=== PATIENT | female | born 1995 | race American Indian/Alaskan Native ===

== ENCOUNTER 2020-01-03 00:56 | Inpatient (IN) | payer SELFPAY ==
[2020-01-03] MEDS ORDERED: LACTATED RINGERS 500 ML IV ONE ×2 (01:45→02:28)
[2020-01-03] MEDS ORDERED: MAGNESIUM SULFATE 4 GM/100 ML BAG IV ONE (02:31)
[2020-01-03] MEDS ORDERED: BUTORPHANOL 2 MG/1 ML INJ IV PRN (02:33)
--- NOTE | 2020-01-03 02:38 | History and Physical Report ---
History of Present Illness Date of examination: 01/03/20 Chief complaint: contractions History of present illness: 24yo at ~30 weeks presents with PTCtx no LOF, no VB, [place] cervix FT/50%/-2, anterior-on admission FHT 140bpm, moderate variability, +ve accels with variable decelerations to 90bpm lasting ~1 minute, early component with return to baseline Past History - Obstetrical History : 2 Medications and Allergies Allergies Allergy/AdvReac Type Severity Reaction Status Date / Time No Known Allergies Allergy Verified 01/03/20 02:01 Active Meds: Active Medications Lactated Ringer's (Lactated Ringers) 500 mls @ 999 mls/hr IV BOLUS ONE Stop: 01/03/20 02:58 Magnesium Sulfate (Magnesium Sulfate 40gm/1000ml) 40 gm in 1,000 mls @ 50 mls/hr IV DIRECT LUIS Cefazolin Sodium 2 gm/ Sodium (Chloride) 100 mls @ 200 mls/hr IV Q8HR LUIS; Protocol Magnesium Sulfate (Magnesium Sulfate 4gm/100ml) 4 gm in 100 mls @ 300 mls/hr IV ONCE ONE Stop: 01/03/20 02:50 - Vital Signs Vital signs: Vital Signs Temp Pulse Resp BP Pulse Ox 98.1 F 85 18 128/63 99 01/03/20 01:13 01/03/20 01:13 01/03/20 01:13 01/03/20 01:13 01/03/20 01:13 Temp Pulse Resp BP Pulse Ox 98.1 F 103 H 18 123/71 100 01/03/20 01:13 01/03/20 02:29 01/03/20 01:13 01/03/20 01:53 01/03/20 02:29 Results All other labs normal. Assessment and Plan contractions admission mag, steroids,fluid, abx US for NICOLAS, EFW, position, placental evaluation UDS, US, prental labs Pain meds prn CFM Maternal/ well being reassuring overall Robbin Jc MD
[2020-01-03] MEDS ORDERED: MAGNESIUM SULFATE 40GM/1000ML 40 GM/1,000 ML BAG IV SCH (03:00)
[2020-01-03 03:27] LABS: Amphetamine Screen,Urine PRESUMPTIVE NEGATIVE; Benzodiazepines Screen,Urine PRESUMPTIVE NEGATIVE; Cannabinoid Screen,Urine PRESUMPTIVE NEGATIVE; Cocaine Screen,Urine PRESUMPTIVE NEGATIVE; Methadone Screen,Urine PRESUMPTIVE NEGATIVE; Opiate Screen,Urine PRESUMPTIVE NEGATIVE
[2020-01-03 03:33] LABS: Bacteria,Urine 1+ /HPF (Negative); Bilirubin,Urine NEG (Negative); Blood,Urine NEG (Negative); Color,Urine Yellow (Yellow); Mucus,Urine 2+ /HPF
[2020-01-03] MEDS ORDERED: LACTATED RINGERS 1,000 ML IV SCH (04:00)
[2020-01-03] MEDS ORDERED: BETAMET ACET/BETAMET NA PH 6 MG/ML INJ 5 ML MDV IM SCH (05:00)
--- NOTE | 2020-01-03 05:41 | Ultrasound Report ---
CLINICAL DATA: See reason for exam. TECHNICAL DATA: Document breath, motion, gestational age, tone, and fluid. FINDINGS: respiration, tone, and motion are well visualized and normal. Amniotic fluid volume is normal. Biophysical profile score is 8/8. The lower uterine segment is evaluated and there is no evidence of placenta previa. heart rate is Heart Rate 139. IMPRESSION: The biophysical profile score is 8/8. Signer Name: Gio Lundberg MD Signed: 01/03/2020 5:37 AM Workstation Name: [id number]
--- NOTE | 2020-01-03 05:43 | Ultrasound Report ---
ULTRASOUND OBSTETRIC INDICATION / CLINICAL INFORMATION: labor. Clinical Gestational Age (GA): TECHNIQUE: Transabdominal. COMPARISON: None available. FINDINGS: There is a single intrauterine . Biparietal Diameter = 7.8 cm = 31 weeks, 2 day(s). Head Circumference = 27.7 cm = 30 weeks, 2 day(s). Abdominal Circumference = 25.5 cm = 29 weeks, 5 day(s). Femur Length = 5.9 cm = 30 weeks, 6 day(s). Average Ultrasound Age (AUA) = 30 weeks, 4 day(s). Heart Rate: 139 beats per minute. Estimated Weight in grams (if calculated): 1536 Estimated Weight Growth Percentile (if calculated): Position: cephalic. Cervix: closed. Length in cm (if measured): Placenta: anterior and free of the os. Amniotic Fluid Volume: normal Amniotic Fluid Index (NICOLAS) in cm (if calculated): 13.9. Maternal Adnexa: No significant abnormality. IMPRESSION: 1. Single, living intrauterine with estimated sonographic age of 30 weeks, 4 day(s). 2. No significant sonographic abnormality. Signer Name: Gio Lundberg MD Signed: 01/03/2020 5:39 AM Workstation Name: [id number]
[2020-01-03 06:15] LABS: Basophils % (Auto) 0.3 % (0.0-1.8); Eosinophils # (Auto) 0.1 K/mm3 (0.0-0.4); Eosinophils % (Auto) 0.8 % (0.0-4.3); Hemoglobin 8.8 gm/dl (10.1-14.3); Lymphocytes # (Auto) 1.4 K/mm3 (1.2-5.4); Lymphocytes % (Auto) 16.8 % (13.4-35.0); Mean Corpuscular HGB Conc 34 % (30-34); Mean Corpuscular Volume 91 fl (79-97); Monocytes # (Auto) 0.7 K/mm3 (0.0-0.8); Monocytes % (Auto) 8.7 % (0.0-7.3); Platelet Count 275 K/mm3 (140-440); Red Blood Count 2.85 M/mm3 (3.65-5.03); Red Cell Distribution Width 13.1 % (13.2-15.2)
[2020-01-03 06:54] LABS: Hepatitis C Virus Antibody Non-Reactive (NonReactive)
--- NOTE | 2020-01-03 10:21 | Progress Note ---
Assessment and Plan A: at 31 weeks, 1 day gestation with contractions. No contractions at present. P: Continue current management as ordered by Dr. Jc (MD managing patient's care). To complete course of steroids. Continue magnesium sulfate and antibiotics. Continuous EFM. Updated MD re: patient status. Subjective - Subjective Date of service: 01/03/20 Principal diagnosis: at 31 weeks, 1 day gestation; cont ractions Interval history: Patient receiving course of steroids for FLM; also receiving magnesium sulfate and antibiotics. No contractions at present time; patient denies abdominal or pelvic pain. Patient denies leaking of fluid or vaginal bleeding. No urinary symptoms. Patient reports active movement. Patient denies falls or abdominal trauma. Patient reports: movement normal, no new complaints, no loss of fluid, no vaginal bleeding Objective - Vital Signs Vital Signs: Vital Signs - 12hr 01/03/20 01/03/20 01/03/20 01:13 01:18 01:23 Temperature 98.1 F Pulse Rate 79 83 84 Respiratory 18 Rate Blood Pressure 128/63 Blood Pressure 128/63 [Left] O2 Sat by Pulse 98 99 98 Oximetry 01/03/20 01/03/20 01/03/20 01:28 01:33 01:34 Temperature Pulse Rate 84 87 88 Respiratory Rate Blood Pressure 125/67 Blood Pressure [Left] O2 Sat by Pulse 99 98 Oximetry 01/03/20 01/03/20 01/03/20 01:38 01:43 01:48 Temperature Pulse Rate 83 84 85 Respiratory Rate Blood Pressure Blood Pressure [Left] O2 Sat by Pulse 96 95 97 Oximetry 01/03/20 01/03/20 01/03/20 01:53 01:58 02:03 Temperature Pulse Rate 86 84 84 Respiratory Rate Blood Pressure 123/71 Blood Pressure [Left] O2 Sat by Pulse 98 96 97 Oximetry 01/03/20 01/03/20 01/03/20 02:09 02:14 02:19 Temperature Pulse Rate 84 83 85 Respiratory Rate Blood Pressure Blood Pressure [Left] O2 Sat by Pulse 98 98 96 Oximetry 01/03/20 01/03/20 01/03/20 02:24 02:26 02:29 Temperature Pulse Rate 85 100 H 103 H Respiratory Rate Blood Pressure Blood Pressure [Left] O2 Sat by Pulse 95 94 100 Oximetry 01/03/20 01/03/20 01/03/20 03:05 03:07 03:10 Temperature Pulse Rate 80 85 Respiratory 18 Rate Blood Pressure 125/70 Blood Pressure [Left] O2 Sat by Pulse 100 100 Oximetry 01/03/20 01/03/20 01/03/20 03:14 03:15 03:19 Temperature Pulse Rate 89 89 93 H Respiratory Rate Blood Pressure 125/72 125/59 Blood Pressure [Left] O2 Sat by Pulse 99 Oximetry 01/03/20 01/03/20 01/03/20 03:20 03:24 03:25 Temperature Pulse Rate 91 H 90 89 Respiratory Rate Blood Pressure 130/68 Blood Pressure [Left] O2 Sat by Pulse 100 99 Oximetry 01/03/20 01/03/20 01/03/20 03:26 03:29 03:30 Temperature 97.7 F Pulse Rate 89 94 H 95 H Respiratory 18 Rate Blood Pressure 140/70 Blood Pressure 130/68 [Left] O2 Sat by Pulse 100 99 Oximetry 01/03/20 01/03/20 01/03/20 03:34 03:35 03:39 Temperature Pulse Rate 95 H 90 84 Respiratory Rate Blood Pressure 133/64 121/58 Blood Pressure [Left] O2 Sat by Pulse 98 Oximetry 01/03/20 01/03/20 01/03/20 03:40 03:44 03:45 Temperature Pulse Rate 88 88 98 H Respiratory Rate Blood Pressure 125/63 Blood Pressure [Left] O2 Sat by Pulse 97 94 Oximetry 01/03/20 01/03/20 01/03/20 03:50 03:55 04:00 Temperature Pulse Rate 99 H 88 92 H Respiratory Rate Blood Pressure Blood Pressure [Left] O2 Sat by Pulse 96 98 97 Oximetry 01/03/20 01/03/20 01/03/20 04:05 04:10 04:15 Temperature Pulse Rate 89 87 88 Respiratory 18 Rate Blood Pressure Blood Pressure [Left] O2 Sat by Pulse 100 95 97 Oximetry 01/03/20 01/03/20 01/03/20 04:19 04:20 04:21 Temperature Pulse Rate 87 91 H 92 H Respiratory Rate Blood Pressure 115/56 Blood Pressure [Left] O2 Sat by Pulse 97 93 Oximetry 01/03/20 01/03/20 01/03/20 04:25 04:30 04:35 Temperature Pulse Rate 87 88 97 H Respiratory Rate Blood Pressure Blood Pressure [Left] O2 Sat by Pulse 99 98 97 Oximetry 01/02/20 20/20 01/03/20 04:40 04:45 04:49 Temperature Pulse Rate 81 84 90 Respiratory Rate Blood Pressure 117/67 Blood Pressure [Left] O2 Sat by Pulse 97 97 Oximetry 01/03/2001/02/20 01/03/20 04:50 04:55 05:00 Temperature Pulse Rate 85 91 H 83 Respiratory Rate Blood Pressure Blood Pressure [Left] O2 Sat by Pulse 98 99 97 Oximetry 01/03/20 01/03/20 01/03/20 05:05 05:10 05:15 Temperature Pulse Rate 88 95 H 89 Respiratory Rate Blood Pressure Blood Pressure [Left] O2 Sat by Pulse 98 99 97 Oximetry 01/03/20 01/03/20 01/03/20 05:20 05:25 05:30 Temperature Pulse Rate 94 H 98 H 88 Respiratory 18 Rate Blood Pressure Blood Pressure [Left] O2 Sat by Pulse 98 97 100 Oximetry 01/03/20 01/03/20 01/03/20 05:35 05:40 05:45 Temperature Pulse Rate 95 H 87 95 H Respiratory Rate Blood Pressure Blood Pressure [Left] O2 Sat by Pulse 98 97 98 Oximetry 01/03/20 01/03/20 01/03/20 05:50 05:55 06:00 Temperature Pulse Rate 86 89 88 Respiratory Rate Blood Pressure Blood Pressure [Left] O2 Sat by Pulse 98 98 98 Oximetry 01/03/2001/02/20 01/03/20 06:08 06:46 06:51 Temperature Pulse Rate 88 97 H 94 H Respiratory Rate Blood Pressure 110/55 Blood Pressure [Left] O2 Sat by Pulse 98 100 Oximetry 01/03/20 01/03/20 01/03/20 06:56 07:01 07:06 Temperature Pulse Rate 100 H 94 H 91 H Respiratory Rate Blood Pressure Blood Pressure [Left] O2 Sat by Pulse 100 100 100 Oximetry 01/03/2020/20 01/03/20 07:08 07:11 07:16 Temperature Pulse Rate 91 H 91 H 91 H Respiratory Rate Blood Pressure 104/52 Blood Pressure [Left] O2 Sat by Pulse 100 99 Oximetry 01/03/2020/20 01/03/20 07:18 07:21 07:26 Temperature Pulse Rate 92 H 93 H Respiratory 18 Rate Blood Pressure Blood Pressure [Left] O2 Sat by Pulse 99 99 Oximetry 06/20/20 06/20/20 06/20/20 07:31 07:36 07:41 Temperature Pulse Rate 92 H 94 H 91 H Respiratory Rate Blood Pressure Blood Pressure [Left] O2 Sat by Pulse 99 99 99 Oximetry /20/20 06/20/20 06/20/20 07:46 07:51 07:56 Temperature Pulse Rate 90 91 H 92 H Respiratory Rate Blood Pressure Blood Pressure [Left] O2 Sat by Pulse 99 98 98 Oximetry /20/20 06/20/20 06/20/20 08:00 08:01 08:06 Temperature 98.1 F Pulse Rate 93 H 93 H Respiratory 20 Rate Blood Pressure Blood Pressure [Left] O2 Sat by Pulse 98 97 Oximetry 20/20 06/20/20 /20/20 08:08 08:11 08:16 Temperature Pulse Rate 92 H 91 H 92 H Respiratory Rate Blood Pressure 93/54 Blood Pressure [Left] O2 Sat by Pulse 97 97 Oximetry 20/20 /20/20 /20/20 08:21 08:26 08:31 Temperature Pulse Rate 95 H 90 94 H Respiratory Rate Blood Pressure Blood Pressure [Left] O2 Sat by Pulse 98 96 97 Oximetry 20/20 /20/20 /20/20 08:36 08:41 08:46 Temperature Pulse Rate 94 H 94 H 93 H Respiratory Rate Blood Pressure Blood Pressure [Left] O2 Sat by Pulse 98 97 96 Oximetry /20/20 06/20/20 /20/20 08:51 08:56 09:01 Temperature Pulse Rate 93 H 92 H 94 H Respiratory Rate Blood Pressure Blood Pressure [Left] O2 Sat by Pulse 97 97 97 Oximetry /20/20 06/20/20 /20/20 09:06 09:08 09:11 Temperature Pulse Rate 90 91 H 89 Respiratory 18 Rate Blood Pressure 107/57 Blood Pressure [Left] O2 Sat by Pulse 97 95 Oximetry /20/20 06/20/20 /20/20 09:16 09:21 09:26 Temperature Pulse Rate 93 H 92 H 94 H Respiratory Rate Blood Pressure Blood Pressure [Left] O2 Sat by Pulse 98 97 97 Oximetry /20/20 06/20/20 /20/20 09:31 09:36 09:41 Temperature Pulse Rate 94 H 95 H 92 H Respiratory Rate Blood Pressure Blood Pressure [Left] O2 Sat by Pulse 97 97 97 Oximetry 01/03/20 01/03/20 01/03/20 09:46 09:51 09:56 Temperature Pulse Rate 95 H 94 H 87 Respiratory Rate Blood Pressure Blood Pressure [Left] O2 Sat by Pulse 97 97 96 Oximetry 01/03/20 01/03/20 01/03/20 10:01 10:06 10:08 Temperature Pulse Rate 86 86 86 Respiratory Rate Blood Pressure 119/67 Blood Pressure [Left] O2 Sat by Pulse 99 98 Oximetry 01/03/20 10:11 Temperature Pulse Rate 88 Respiratory Rate Blood Pressure Blood Pressure [Left] O2 Sat by Pulse 97 Oximetry - Exam Cardiovascular: Regular rate Lungs: Clear to auscultation Abdomen: Present: normal appearance, soft. Absent: distention, tenderness, guarding, rigidity Uterus: Present: normal, fundal height above umbilicus. Absent: tenderness FHR: category 1 Uterine Contraction Monitor Mode: External Uterine Contraction Pattern: Absent Extremities: normal - Labs Labs: Abnormal Labs 01/03/20 05:00 RBC 2.85 L Hgb 8.8 L Hct 26.0 L RDW 13.1 L [place] % (Auto) 8.7 H Seg Neutrophils % 73.4 H Laboratory Results - last 24 hr 01/03/20 01/03/20 01/03/20 05:00 05:00 05:00 WBC 8.2 RBC 2.85 L Hgb 8.8 L Hct 26.0 L MCV 91 MCH 31 MCHC 34 RDW 13.1 L Plt Count 275 Lymph % (Auto) 16.8 [place] % (Auto) 8.7 H Eos % (Auto) 0.8 Baso % (Auto) 0.3 Lymph # 1.4 [place] # 0.7 Eos # 0.1 Baso # 0.0 Seg Neutrophils % 73.4 H Seg Neutrophils # 6.0 Urine Color Urine Turbidity Urine pH Ur Specific [place] Urine Protein Urine Glucose (UA) Urine Ketones Urine Blood Urine Nitrite Urine Bilirubin Urine Urobilinogen Ur Leukocyte Esterase Urine WBC (Auto) Urine RBC (Auto) U Epithel Cells (Auto) Urine Bacteria (Auto) Urine Mucus Urine Opiates Screen Urine Methadone Screen Ur Barbiturates Screen Ur Phencyclidine Scrn Ur Amphetamines Screen U Benzodiazepines Scrn Urine Cocaine Screen U Marijuana (THC) Screen Drugs of Abuse Note Syphilis IgG Antibody Hep Bs Antigen Hepatitis C Antibody Non-reactive HIV 1&2 Antibody Rapid HIV P24 Antigen Rubella IgG Antibody Immune Blood Type O POSITIVE Antibody Screen Negative 01/03/20 01/03/20 01/03/20 05:00 05:00 05:00 WBC RBC Hgb Hct MCV MCH MCHC RDW Plt Count Lymph % (Auto) [place] % (Auto) Eos % (Auto) Baso % (Auto) Lymph # [place] # Eos # Baso # Seg Neutrophils % Seg Neutrophils # Urine Color Urine Turbidity Urine pH Ur Specific [place] Urine Protein Urine Glucose (UA) Urine Ketones Urine Blood Urine Nitrite Urine Bilirubin Urine Urobilinogen Ur Leukocyte Esterase Urine WBC (Auto) Urine RBC (Auto) U Epithel Cells (Auto) Urine Bacteria (Auto) Urine Mucus Urine Opiates Screen Urine Methadone Screen Ur Barbiturates Screen Ur Phencyclidine Scrn Ur Amphetamines Screen U Benzodiazepines Scrn Urine Cocaine Screen U Marijuana (THC) Screen Drugs of Abuse Note Syphilis IgG Antibody Non-reactive Hep Bs Antigen Non-reactive Hepatitis C Antibody HIV 1&2 Antibody Rapid Non react HIV P24 Antigen Non react Rubella IgG Antibody Blood Type Antibody Screen 01/03/20 01/03/20 Unknown Unknown WBC RBC Hgb Hct MCV MCH MCHC RDW Plt Count Lymph % (Auto) [place] % (Auto) Eos % (Auto) Baso % (Auto) Lymph # [place] # Eos # Baso # Seg Neutrophils % Seg Neutrophils # Urine Color Yellow Urine Turbidity Clear Urine pH 6.0 Ur Specific [place] 1.029 Urine Protein 30 mg/dl Urine Glucose (UA) Neg Urine Ketones Neg Urine Blood Neg Urine Nitrite Neg Urine Bilirubin Neg Urine Urobilinogen 2.0 Ur Leukocyte Esterase Tr Urine WBC (Auto) 1.0 Urine RBC (Auto) 3.0 U Epithel Cells (Auto) 3.0 Urine Bacteria (Auto) 1+ Urine Mucus 2+ Urine Opiates Screen Presumptive negative Urine Methadone Screen Presumptive negative Ur Barbiturates Screen Presumptive negative Ur Phencyclidine Scrn Presumptive negative Ur Amphetamines Screen Presumptive negative U Benzodiazepines Scrn Presumptive negative Urine Cocaine Screen Presumptive negative U Marijuana (THC) Screen Presumptive negative Drugs of Abuse Note Disclamer Syphilis IgG Antibody Hep Bs Antigen Hepatitis C Antibody HIV 1&2 Antibody Rapid HIV P24 Antigen Rubella IgG Antibody Blood Type Antibody Screen
[2020-01-03 13:10] VITALS: BP 114/56
== END 2020-01-03 13:45 | disposition left against medical advice (07) | DRG 833 ==
LOC: TRG 00:56 → APU 00:57 → LD 02:28 → TRG 02:28
PROVIDERS: ADMIT Obstetrics & Gynecology; ATTEND Obstetrics & Gynecology
DX: O60.03 Preterm labor without delivery, third trimester (principal); Z3A.31 31 weeks gestation of pregnancy
CPT/HCPCS: 36415; 59025; 76816; 76819; 80307; 81001; 83735; 85025; 86592; 86706; 86762; 86803; 86850; 86900; 86901; 87116; 87806; 96361; G0378; J0690; J0702; J3475; J7120